=== PATIENT | female | born 1955 | race Hispanic/Latino ===

== ENCOUNTER 2018-08-29 10:00 | Emergency (ER) | payer MEDICARE ==
[2018-08-29] MEDS ORDERED: ONDANSETRON ODT 4 MG TAB ONE (10:43)
[2018-08-29] MEDS ORDERED: IBUPROFEN 600 MG TABLET ONE (10:43)
[2018-08-29] MEDS ORDERED: MORPHINE SULFATE 5 MG/ML VIAL ONE (10:44)
== END 2018-08-29 11:21 | disposition home or self-care (01) ==
LOC: EDH 10:00
CPT/HCPCS: 73030; 96372; J2270

== ENCOUNTER 2018-12-04 09:38 | Inpatient (IN) | payer OTHER, MEDICARE ==
[~2018-12-04] VITALS: Ht 162.6 cm; Wt 86.0 kg
[2018-12-04 10:36] LABS: BASOPHILS % (AUTO) 1.4 % (0.0-5.0); EOSINOPHILS % (AUTO) 2.7 % (0.0-8.0); HEMATOCRIT 36.4 % (36-48); LYMPHOCYTES % (AUTO) 20.4 % (21.0-51.0); MEAN CORPUSCULAR HGB CONC 33.3 g/dL (32.0-36.0); MEAN CORPUSCULAR VOLUME 87.1 fL (79-99); MONOCYTES % (AUTO) 6.1 % (3.0-13.0); NEUTROPHILS % (AUTO) 69.4 % (40.0-77.0); PLATELET COUNT (AUTO) 401 K/uL (130-400); RED BLOOD CELL COUNT(AUTO) 4.17 MIL/uL (4.00-5.50); RED CELL DISTRIBUTION WIDTH 14.2 % (11.0-15.5); WHITE BLOOD COUNT (AUTO) 10.8 K/uL (4.8-10.8)
[2018-12-04 10:41] LABS: CREATININE 0.7 mg/dL (0.5-1.5); POTASSIUM 4.4 mmol/L (3.5-5.1)
[2018-12-04 10:46] LABS: ALBUMIN 3.4 g/dL (3.5-5.0); BILIRUBIN,TOTAL 0.3 mg/dL (0.2-1.0); TOTAL PROTEIN, SERUM 8.3 g/dL (6.0-8.3)
[2018-12-04] MEDS ORDERED: ZOSYN 3.375GM+NS 50ML 50 ML IV ONE (11:02)
[2018-12-04] MEDS ORDERED: VANCOMYCIN 1GM+NS 250ML 250 ML IV ONE ×2 (11:02→14:00)
[2018-12-04] MEDS ORDERED: COMPOUND IV REFRIGERATED 1 EACH IVSOLN MISC PRN (13:30)
[2018-12-04] MEDS ORDERED: HYDRALAZINE HCL 20 MG/ML VIAL IV PRN (16:00)
[2018-12-04] MEDS ORDERED: MORPHINE SULFATE 4 MG/1ML SYG IV PRN (16:00)
[2018-12-04] MEDS ORDERED: ONDANSETRON HCL 4 MG/2 ML VIAL IV PRN (16:00)
[2018-12-04] MEDS ORDERED: ACETAMINOPHEN 325 MG TAB PO PRN (16:00)
[2018-12-04] MEDS: ZOSYN 3.375GM+NS 50ML 50 ML IV SCH (17:00)
--- NOTE | 2018-12-04 17:10 | NUR ---
Recieved pt from ER. Patient placed in bed by ER nurse. Pt alert, awake and oriented x3. No home medications brought. States daycare she attends has copy. Nurse to request copy tomorrow from daycare. Bed placed in lowest position, call light placed within reach, instructed on how to call nurse using call gusman. Instructed to call nurse if needing to get out of bed for BR. Patient has dressing in place to right foot which was placed by Dr. Khan today. Wound pics pending until dressing reopened by Dr. Khan. Venous Doppler used for left foot pedal pulses and audible. Unable to perform right foot venous doppler due to dressing in place. Patient in no distress.
[2018-12-04] MEDS: INSULIN HUMULIN R 100 UNIT/ML 3ML SQ SCH ×2 (17:45→22:15)
[2018-12-04] MEDS: SODIUM CHLORIDE 0.9% 1000ML 1,000 ML IV SCH (17:46)
[2018-12-04 18:01] VITALS: BP 145/64
[2018-12-04 20:20] VITALS: BP 145/64
[2018-12-04] MEDS: FAMOTIDINE/PF 20 MG/2 ML VIAL IV SCH (22:07)
[2018-12-04] MEDS: VANCOMYCIN 750MG + NS 250 ML IV SCH ×2 (22:07)
[2018-12-04 23:55] VITALS: BP 100/54
[2018-12-05] VITALS (8 sets, daily range): BP systolic 103–136; BP diastolic 44–66
[2018-12-05] MEDS: ZOSYN 3.375GM+NS 50ML 50 ML IV SCH ×3 (00:53→18:14)
[2018-12-05] MEDS: SODIUM CHLORIDE 0.9% 1000ML 1,000 ML IV SCH ×4 (01:51→23:26)
[2018-12-05] MEDS: ACETAMINOPHEN 325 MG TAB PO PRN (03:45)
[2018-12-05] MEDS ORDERED: VANCOMYCIN 1GM+NS 250ML 250 ML IV ONE (05:34)
[2018-12-05] MEDS: VANCOMYCIN 750MG + NS 250 ML IV SCH ×6 (05:40→20:18)
[2018-12-05] MEDS: INSULIN HUMULIN R 100 UNIT/ML 3ML SQ SCH ×3 (06:19→20:25)
[2018-12-05] MEDS ORDERED: ENOXAPARIN SODIUM 40 MG/0.4 ML SYRINGE SQ SCH (09:00)
[2018-12-05] MEDS: FAMOTIDINE/PF 20 MG/2 ML VIAL IV SCH ×2 (09:14→20:17)
--- NOTE | 2018-12-05 09:45 | NUR ---
Patient called [facility] and spoke with nurse on speaker phone while i was in the room. Patient tried to explain to Nurse Ferny from [facility] if medications can be faxed to hospital, Ferny quickly told patient that he was busy giving Insulin and that he would call her back.
--- NOTE | 2018-12-05 10:58 | NUR ---
Dr. Carbone called for consultation and given pt history, states he will be by some time today.
--- NOTE | 2018-12-05 13:10 | NUR ---
Dr. Carbone rounding with patient and explaining POC with patient. Nurse Ferny from [facility] called patient during md rounding and hastly told patient that it was time for him to go home and that he cannot hear what she needed and did not have time and hung up phone in a henry. Continue pending home medications and when asked if family may bring, patient states no one is able to bring home meds.
--- NOTE | 2018-12-05 13:50 | NUR ---
Consents signed for TALENT MANAGER, Atherectomy, Right Angiogram by Dr. de souza. Projection Welding Machine Operator Nurses present in patient room for pick up and delivery driver for procedure. Patient taken to supervisor cytogenetic laboratory in stable condition via wheelchair.
[2018-12-05 13:58] LABS: HEMATOCRIT 32.7 % (36-48); MEAN CORPUSCULAR HEMOGLOBIN 28.8 pg (27.0-33.0); MEAN CORPUSCULAR VOLUME 87.3 fL (79-99); PLATELET COUNT (AUTO) 419 K/uL (130-400); RED BLOOD CELL COUNT(AUTO) 3.74 MIL/uL (4.00-5.50); WHITE BLOOD COUNT (AUTO) 7.7 K/uL (4.8-10.8)
--- NOTE | 2018-12-05 14:05 | NUR ---
DCP CM met with pt discussed dc plans. Pt is semi-independent prior to admission, lives at home alone, daughter lives close by. Has a walker, rosa, provider M-F 5hrs Sat&Sun 3.5hrs, goes to [facility] Mon-Mon [id number]. Patient states she goes to [facility] for once a week for wound care. Feels safe to go back home, [facility] provider transportation for pt, daughter assist as well w/transportation and needs as necessary. Pt agreeable for placement if MD recommends, SILVIA signed for [facility], will wait for MD recommendations/order. DC plan to home vs snf once stable. CM to cont to follow up. Addendum: 12/05/18 at 1408 by MARIA LUISA BARROS LVN CM Amended: Links added.
[2018-12-05 14:10] LABS: INR 0.95 (0.85-1.15); PARTIAL THROMBOPLASTIN TIME 28.7 SEC (26.3-35.5)
[2018-12-05 14:16] LABS: CREATININE 0.9 mg/dL (0.5-1.5)
[2018-12-05] MEDS ORDERED: LIDOCAINE HCL 2% 20ML ONE (14:22)
[2018-12-05] MEDS ORDERED: IODIXANOL 320 MG/ML 100 ML VIAL ONE ×2 (14:22→15:10)
[2018-12-05] MEDS ORDERED: NITROGLYCERIN 5 MG/ML 10 ML VIAL IV ONE (14:22)
[2018-12-05] MEDS ORDERED: HEPARIN SODIUM 1000UNIT/ML 10ML VIAL ONE ×2 (14:22→16:43)
[2018-12-05] MEDS ORDERED: BIVALIRUDIN 250 MG/VIAL IV ONE (14:22)
[2018-12-05] MEDS ORDERED: MIDAZOLAM HCL 1 MG/ML 2ML VIAL ONE (14:38)
[2018-12-05] MEDS ORDERED: FENTANYL CITRATE PF 50 MCG/1 ML 2ML VIAL ONE ×2 (14:38→16:36)
[2018-12-05] MEDS ORDERED: DiphenhydrAMINE HCL 50 MG/ML VIAL ONE (14:45)
[2018-12-05] MEDS ORDERED: SODIUM CHLORIDE 0.9% 1000ML 1,000 ML IV SCH (17:30)
--- NOTE | 2018-12-05 17:35 | NUR ---
Recieved report from [facility]. VS stable. patient did not have any ballooning done by Dr. Carbone. Only pics taken of Right leg. Anterior Tibial patent, posterior tibial occluded. patient with Left Perclose femoral artery. orders read back.
--- NOTE | 2018-12-05 17:50 | NUR ---
Patient returned from laborer syrup machine. Daughter present in room. Ferny dressing to left groin, clean dry and intact. Assessed with laborer syrup machine [facility]. Patient vs stable. Pedal pulses palpaple. Reinforced instruction on laying flat for 4 hours. Pt c/o abdominal pain and grimacing. Pillow placed under back for pain management. Call light placed within reach, bed to lowest position.
[2018-12-05] MEDS: MORPHINE SULFATE 2 MG/ML 1ML SYG IV PRN (18:20)
[2018-12-06] VITALS (7 sets, daily range): BP systolic 113–137; BP diastolic 53–78
[2018-12-06] MEDS: ZOSYN 3.375GM+NS 50ML 50 ML IV SCH ×3 (01:09→16:57)
[2018-12-06 04:21] LABS: BASOPHILS % (AUTO) 0.7 % (0.0-5.0); HEMATOCRIT 32.5 % (36-48); LYMPHOCYTES % (AUTO) 24.8 % (21.0-51.0); MEAN CORPUSCULAR HEMOGLOBIN 29.1 pg (27.0-33.0); MEAN CORPUSCULAR HGB CONC 33.5 g/dL (32.0-36.0); MONOCYTES % (AUTO) 8.3 % (3.0-13.0); NEUTROPHILS % (AUTO) 63.2 % (40.0-77.0); PLATELET COUNT (AUTO) 393 K/uL (130-400); RED BLOOD CELL COUNT(AUTO) 3.73 MIL/uL (4.00-5.50); WHITE BLOOD COUNT (AUTO) 8.6 K/uL (4.8-10.8)
[2018-12-06 04:37] LABS: CREATININE 0.8 mg/dL (0.5-1.5); POTASSIUM 4.2 mmol/L (3.5-5.1)
[2018-12-06] MEDS: VANCOMYCIN 750MG + NS 250 ML IV SCH ×4 (05:59→13:53)
[2018-12-06] MEDS: INSULIN HUMULIN R 100 UNIT/ML 3ML SQ SCH ×4 (06:52→21:00)
[2018-12-06] MEDS: SODIUM CHLORIDE 0.9% 1000ML 1,000 ML IV SCH (09:26)
[2018-12-06] MEDS: FAMOTIDINE/PF 20 MG/2 ML VIAL IV SCH (10:08)
[2018-12-06] MEDS: MORPHINE SULFATE 2 MG/ML 1ML SYG IV PRN (13:54)
[2018-12-06] MEDS: LACTULOSE 20 GM/30 ML UDCUP PO PRN (16:58)
[2018-12-07] VITALS (17 sets, daily range): BP systolic 111–148; BP diastolic 42–70
[2018-12-07] MEDS: SODIUM CHLORIDE 0.9% 1000ML 1,000 ML IV SCH ×4 (00:08→15:26)
[2018-12-07] MEDS: FAMOTIDINE/PF 20 MG/2 ML VIAL IV SCH ×3 (00:08→21:15)
[2018-12-07] MEDS: VANCOMYCIN 750MG + NS 250 ML IV SCH ×8 (00:10→21:15)
[2018-12-07] MEDS: ZOSYN 3.375GM+NS 50ML 50 ML IV SCH ×3 (00:59→17:47)
[2018-12-07 04:55] LABS: BASOPHILS % (AUTO) 1.1 % (0.0-5.0); EOSINOPHILS % (AUTO) 3.7 % (0.0-8.0); HEMATOCRIT 33.8 % (36-48); LYMPHOCYTES % (AUTO) 29.5 % (21.0-51.0); MEAN CORPUSCULAR HEMOGLOBIN 29.3 pg (27.0-33.0); MEAN CORPUSCULAR HGB CONC 33.8 g/dL (32.0-36.0); MEAN CORPUSCULAR VOLUME 86.6 fL (79-99); NEUTROPHILS % (AUTO) 58.7 % (40.0-77.0); PLATELET COUNT (AUTO) 425 K/uL (130-400); RED CELL DISTRIBUTION WIDTH 13.8 % (11.0-15.5)
[2018-12-07 05:11] LABS: CREATININE 0.8 mg/dL (0.5-1.5); POTASSIUM 3.9 mmol/L (3.5-5.1)
[2018-12-07] MEDS: INSULIN HUMULIN R 100 UNIT/ML 3ML SQ SCH ×4 (05:54→20:59)
[2018-12-07] MEDS ORDERED: BUPIVACAINE/PF 0.5% 30ML VIAL ONE (06:27)
[2018-12-07] MEDS ORDERED: LIDOCAINE HCL 1% 20 ML VIAL ONE (06:27)
[2018-12-07] MEDS ORDERED: ONDANSETRON HCL 4 MG/2 ML VIAL ONE (06:32)
[2018-12-07] MEDS ORDERED: MIDAZOLAM HCL 1 MG/ML 2ML VIAL ONE (06:32)
[2018-12-07] MEDS ORDERED: LIDOCAINE PF 2% 5ML ABBOJECT ONE (06:34)
[2018-12-07] MEDS ORDERED: PROPOFOL 10 MG/ML 20ML VIAL IV ONE ×2 (06:35→07:28)
--- NOTE | 2018-12-07 08:30 | NUR ---
POSTOP , RT FOOT . SURGERY, PT BACK WITH A LAKESHIA DRSG DRYAND CLEAN AND ELEVATED UP ON PILLOW . DENIES ANY PAIN, POSTOP V/S MONITOR STARTED , ORDER DIET. CALL LIGHT IN REACH. .
--- NOTE | 2018-12-07 14:04 | NUR ---
CM Note: [facility] pending ins auth and acceptance Spoke to Maria Luisa romero/[facility], received clinicals, order, and pasrr. Will come eval pt. Aware pt pending PT eval and treat, will fax notes as soon as available. Pt pending ins auth and acceptance. Primary nurse aware. CM to cont to follow up.
--- NOTE | 2018-12-07 18:00 | NUR ---
PIV TO HER RT FOREARM DC, DUE TO SOME TENDERNESS , A SM DRSG APPLICATION ON . STARTED A 22 G. TO HER LT WRIST , SITE ,WITH GOOD BLOOD RETURN NOTED .SITE CARE DONE. CALL LIGHT IN [place] [facility] . RT FOOT DRSG DRY A ND CLEAN A ND ELEVATED UP ON PILLOWS
[2018-12-07] MEDS: MORPHINE SULFATE 2 MG/ML 1ML SYG IV PRN (18:03)
[2018-12-08] MEDS: ZOSYN 3.375GM+NS 50ML 50 ML IV SCH ×3 (01:16→16:28)
[2018-12-08] MEDS: SODIUM CHLORIDE 0.9% 1000ML 1,000 ML IV SCH ×3 (01:16→21:35)
[2018-12-08 03:15] VITALS: BP 121/45
[2018-12-08 04:25] LABS: BASOPHILS % (AUTO) 0.8 % (0.0-5.0); EOSINOPHILS % (AUTO) 2.2 % (0.0-8.0); HEMATOCRIT 30.8 % (36-48); LYMPHOCYTES % (AUTO) 19.2 % (21.0-51.0); MEAN CORPUSCULAR HEMOGLOBIN 29.1 pg (27.0-33.0); MEAN CORPUSCULAR HGB CONC 33.6 g/dL (32.0-36.0); MEAN CORPUSCULAR VOLUME 86.6 fL (79-99); NEUTROPHILS % (AUTO) 70.8 % (40.0-77.0); PLATELET COUNT (AUTO) 377 K/uL (130-400); RED BLOOD CELL COUNT(AUTO) 3.56 MIL/uL (4.00-5.50); RED CELL DISTRIBUTION WIDTH 13.9 % (11.0-15.5); WHITE BLOOD COUNT (AUTO) 10.5 K/uL (4.8-10.8)
[2018-12-08 04:33] LABS: CREATININE 0.9 mg/dL (0.5-1.5); POTASSIUM 3.4 mmol/L (3.5-5.1)
[2018-12-08] MEDS: VANCOMYCIN 750MG + NS 250 ML IV SCH ×6 (04:39→20:33)
[2018-12-08] MEDS: POTASSIUM CHLORIDE 20 MEQ ERTAB PO PRN (05:21)
[2018-12-08] MEDS ORDERED: POTASSIUM CHLORIDE 10% ELIXIR 20 MEQ/15 ML UDCUP PO PRN (05:30)
[2018-12-08] MEDS ORDERED: LIDOCAINE HCL-MPF 1% 2ML VIAL IVP PRN (05:30)
[2018-12-08] MEDS ORDERED: POTASSIUM CHLORIDE 20MEQ/100ML 100 ML IV PRN (05:30)
[2018-12-08] MEDS: INSULIN HUMULIN R 100 UNIT/ML 3ML SQ SCH ×4 (06:10→20:13)
[2018-12-08] MEDS: ACETAMINOPHEN 325 MG TAB PO PRN (06:41)
[2018-12-08 08:00] VITALS: BP 116/58
[2018-12-08] MEDS: FAMOTIDINE/PF 20 MG/2 ML VIAL IV SCH ×2 (09:06→20:32)
[2018-12-08] MEDS: LACTULOSE 20 GM/30 ML UDCUP PO PRN (09:14)
--- NOTE | 2018-12-08 11:10 | NUR ---
PT D/C WITH TEACH BACK EDUCATION SATISFACTORILY IV REMOVED, CATHETER INTACT PUNCTURE SITE, CLEAN AND DRY , SOFT NO SIGNS OF HEMATOMA, INFECTION NOTED Addendum: 12/08/18 at 1215 by NAOMI MI RN DISREGARD, WRONG PT
[2018-12-08 12:00] VITALS: BP 120/68
[2018-12-08 12:33] LABS: INR 0.98 (0.85-1.15); PARTIAL THROMBOPLASTIN TIME 27.1 SEC (26.3-35.5); PROTHROMBIN TIME 10.3 SEC (9.6-11.6)
[2018-12-08 16:00] VITALS: BP 156/75
[2018-12-08 19:00] VITALS: BP 142/70
[2018-12-08 23:00] VITALS: BP 102/50
[2018-12-09] MEDS: ZOSYN 3.375GM+NS 50ML 50 ML IV SCH ×3 (01:01→17:05)
[2018-12-09 03:00] VITALS: BP 138/67
[2018-12-09 04:22] LABS: BASOPHILS % (AUTO) 0.7 % (0.0-5.0); EOSINOPHILS % (AUTO) 1.8 % (0.0-8.0); HEMATOCRIT 28.6 % (36-48); LYMPHOCYTES % (AUTO) 17.5 % (21.0-51.0); MEAN CORPUSCULAR HGB CONC 33.5 g/dL (32.0-36.0); MEAN CORPUSCULAR VOLUME 86.3 fL (79-99); MONOCYTES % (AUTO) 8.4 % (3.0-13.0); NEUTROPHILS % (AUTO) 71.6 % (40.0-77.0); PLATELET COUNT (AUTO) 373 K/uL (130-400); RED BLOOD CELL COUNT(AUTO) 3.32 MIL/uL (4.00-5.50); RED CELL DISTRIBUTION WIDTH 13.5 % (11.0-15.5); WHITE BLOOD COUNT (AUTO) 10.5 K/uL (4.8-10.8)
[2018-12-09] MEDS: VANCOMYCIN 750MG + NS 250 ML IV SCH ×6 (04:30→19:56)
[2018-12-09 04:50] LABS: CREATININE 0.7 mg/dL (0.5-1.5); POTASSIUM 3.3 mmol/L (3.5-5.1)
[2018-12-09] MEDS: POTASSIUM CHLORIDE 20 MEQ ERTAB PO PRN ×2 (04:54→06:47)
[2018-12-09] MEDS: INSULIN HUMULIN R 100 UNIT/ML 3ML SQ SCH ×4 (06:26→20:59)
[2018-12-09] MEDS: SODIUM CHLORIDE 0.9% 1000ML 1,000 ML IV SCH ×2 (06:30→17:26)
[2018-12-09 08:36] VITALS: BP 127/57
[2018-12-09] MEDS: FAMOTIDINE/PF 20 MG/2 ML VIAL IV SCH ×2 (09:08→19:56)
[2018-12-09 12:22] VITALS: BP 122/57
[2018-12-09 16:41] VITALS: BP 141/68
[2018-12-09 19:55] VITALS: BP 142/78
[2018-12-09] MEDS: LACTULOSE 20 GM/30 ML UDCUP PO PRN (19:56)
[2018-12-09] MEDS ORDERED: IBUP-2070 PO (22:26)
[2018-12-09] MEDS ORDERED: PREG150C PO (22:26)
[2018-12-09] MEDS ORDERED: RANI150T7 PO (22:26)
[2018-12-09] MEDS ORDERED: METF-446 PO (22:26)
[2018-12-09 23:21] VITALS: BP 127/62
[2018-12-10] MEDS: ZOSYN 3.375GM+NS 50ML 50 ML IV SCH ×3 (00:30→18:23)
[2018-12-10] MEDS: POTASSIUM CHLORIDE 20 MEQ ERTAB PO PRN (00:31)
[2018-12-10] MEDS: SODIUM CHLORIDE 0.9% 1000ML 1,000 ML IV SCH (02:40)
[2018-12-10 04:21] VITALS: BP 120/56
[2018-12-10] MEDS: VANCOMYCIN 750MG + NS 250 ML IV SCH ×2 (04:26)
[2018-12-10] MEDS: INSULIN HUMULIN R 100 UNIT/ML 3ML SQ SCH ×4 (06:17→21:23)
--- NOTE | 2018-12-10 06:26 | NUR ---
SALIVA/SPUTUM NOTED BLOOD STREAKED SALIVA, SMALL AMOUNT ,BRIGHT RED FRESH STREAK,POST HEAVING,AND EVENTUAL COUGHING EPISODE, AND REASSURED PT ,WILL REPORT TO MD, CONSIDERING THE SCANT FRESH BRIGHT RED COLOR COULD POSSIBLY BE IRRITATION FROM THROAT/DRYNESS. WILL CONTINUE TO OBSERVE. NO DISTRESS Addendum: 12/10/18 at 0629 by TAYLOR WRIGHT RN RN Amended: Links added.
--- NOTE | 2018-12-10 07:30 | NUR ---
NOTE AAOX3. DENIES PAIN OR DISCOMFORT. DR FUENTES IN THE ROOM AT THIS TIME. PATIENT IS PENDING ACCEPTANCE TO [facility] FOR LONG TERM ANTIBIOTICS. LEFT STUMP DRESSING REMOVED PER DR FUENTES AND PICTURES TAKEN FOR PATIENT MAY LEAVE TODAY. ELIZABETH DRAINS REMOVED X2 WELL. SUTURE LINE INTACT. INCISION CLEAN DRY NO DEHISCENCE NOTED. SMALL OPENING DISTAL STUMP SMALL AMOUNT OF BLEEDING DRAINAGE NOTED. DRESSING APPLIED TO SITE. BBS CLEAR. NO DISTRESS OR SOB. ONLY COMPLAIN IS SLIGHT COUGH WITH BLOOD TINGED SPUTUM BUT COMPLAINS HER NOSE IS TOO DRY. NO FEVER. VS STABLE. ISOLATION FOR CONTACT DUE TO WOUND.
[2018-12-10 07:51] VITALS: BP 140/63
[2018-12-10] MEDS: FAMOTIDINE/PF 20 MG/2 ML VIAL IV SCH ×2 (10:34→21:18)
[2018-12-10 11:36] VITALS: BP 125/59
[2018-12-10] MEDS ORDERED: MAGNESIUM HYDROXIDE 30 ML/UDCUP PO PRN (15:00)
[2018-12-10] MEDS ORDERED: VANCOMYCIN PROTOCOL PER PHARMACY IV SCH (15:30)
[2018-12-10] MEDS ORDERED: MAGNESIUM HYDROXIDE 30 ML/UDCUP ONE (15:42)
[2018-12-10 16:38] VITALS: BP 150/65
[2018-12-10] MEDS: VANCOMYCIN 500MG+NS 100 ML IV SCH (16:53)
--- NOTE | 2018-12-10 16:57 | NUR ---
Nutrition intervention: Nutrition notification for LOS x6. Pt reports troubled with her stomach with some foods and is requesting double portion of vegetables. Pt also requesting mechanical soft food d/t missing teeth. PANKAJ to make updated changes for pt's diet. [facility] 12/06-please monitor for constipation. Alb 3.4. Addendum: 12/10/18 at [address] Amended: Links added.
--- NOTE | 2018-12-10 17:04 | NUR ---
NOTE HAS REMAINED STABLE THROUGHOUT THE DAY. PATIENT HAS NOT BEEN ACCEPTED TO SNF YET AND DISCHARGE MED REC READY. SHE ALSO C/O CONSTIPATION NO SYMPTOMS BUT SHE DID NOT RESPOND TO LACTULOSE SO I GOT ORDERS FROM [facility] FOR M.O.M. WAS MEDICATED ONCE WITH M.O.M. PENDING RESULTS. STATES IT SHOULD WORK SOON.
[2018-12-10 20:00] VITALS: BP 127/58
[2018-12-11] VITALS: BP 122/58
[2018-12-11] MEDS: VANCOMYCIN 500MG+NS 100 ML IV SCH ×3 (00:52→16:57)
[2018-12-11] MEDS: ZOSYN 3.375GM+NS 50ML 50 ML IV SCH ×3 (01:49→16:58)
[2018-12-11 04:00] VITALS: BP 120/59
[2018-12-11] MEDS: INSULIN HUMULIN R 100 UNIT/ML 3ML SQ SCH ×3 (06:56→17:00)
[2018-12-11 07:52] VITALS: BP 128/54
[2018-12-11] MEDS: FAMOTIDINE/PF 20 MG/2 ML VIAL IV SCH (10:32)
[2018-12-11 11:20] VITALS: BP 123/65
[2018-12-11 17:04] VITALS: BP 118/62
== END 2018-12-11 18:46 | DRG 504 ==
LOC: EDH 09:38 → EDHIP 09:39 → 4BH 16:47
PROVIDERS: ADMIT Internal Medicine; ATTEND Internal Medicine
PROC: 047R3ZZ Dilation of Right Posterior Tibial Artery, Percutaneous Approach (ICD-10-PCS; 2018-12-06)
PROC: B41D1ZZ Fluoroscopy of Aorta and Bilateral Lower Extremity Arteries using Low Osmolar Contrast (ICD-10-PCS; 2018-12-06)
PROC: 0QBN0ZZ Excision of Right Metatarsal, Open Approach (ICD-10-PCS; principal; 2018-12-07 06:30)
PROC: 02HV33Z Insertion of Infusion Device into Superior Vena Cava, Percutaneous Approach (ICD-10-PCS; 2018-12-08)
PROC: B5181ZA Fluoroscopy of Superior Vena Cava using Low Osmolar Contrast, Guidance (ICD-10-PCS; 2018-12-08)
DX: T87.40 Infection of amputation stump, unspecified extremity (principal); M86.10 Other acute osteomyelitis, unspecified site; L03.115 Cellulitis of right lower limb; L97.419 Non-pressure chronic ulcer of right heel and midfoot with unspecified severity; M86.8X7 Other osteomyelitis, ankle and foot; E11.621 Type 2 diabetes mellitus with foot ulcer; E11.51 Type 2 diabetes mellitus with diabetic peripheral angiopathy without gangrene; E11.69 Type 2 diabetes mellitus with other specified complication; M19.90 Unspecified osteoarthritis, unspecified site; E78.00 Pure hypercholesterolemia, unspecified; L97.529 Non-pressure chronic ulcer of other part of left foot with unspecified severity; E11.622 Type 2 diabetes mellitus with other skin ulcer; Y83.5 Amputation of limb(s) as the cause of abnormal reaction of the patient, or of later complication, without mention of misadventure at the time of the procedure; E66.9 Obesity, unspecified; E78.5 Hyperlipidemia, unspecified; I10 Essential (primary) hypertension; Z68.32 Body mass index [BMI] 32.0-32.9, adult; Z83.3 Family history of diabetes mellitus
CPT/HCPCS: 36247; 36415; 37228; 71045; 73630; 73718; 75710; 80048; 80053; 80202; 82948; 84132; 85025; 85027; 85610; 85730; 87070; 87076; 87077; 87186; 87205; 93005; 93925; 97039; 99156; 99157; C1760; C1769; C1773; C1894; G0378; J0583; J1200; J1644; J1650; J1815; J2001; J2250; J2405; J2543; J2704; J3010; J3370; J3490; J7030; Q9967

== ENCOUNTER → 2020-05-27 | Outpatient (CLI) | payer MEDICARE ==
[~2020-05-27] MED LIST: IBUP-2070 PO; METF-446 PO; PREG150C PO; RANI150T7 PO
== END | disposition home or self-care (01) ==
LOC: WHH 08:00
PROVIDERS: ATTEND Podiatrist Foot & Ankle Surgery
DX: E11.621 Type 2 diabetes mellitus with foot ulcer (principal); L97.521 Non-pressure chronic ulcer of other part of left foot limited to breakdown of skin; E11.42 Type 2 diabetes mellitus with diabetic polyneuropathy; E11.51 Type 2 diabetes mellitus with diabetic peripheral angiopathy without gangrene; E11.69 Type 2 diabetes mellitus with other specified complication; M86.8X7 Other osteomyelitis, ankle and foot; E66.9 Obesity, unspecified; I10 Essential (primary) hypertension; E78.00 Pure hypercholesterolemia, unspecified; E78.5 Hyperlipidemia, unspecified; M19.90 Unspecified osteoarthritis, unspecified site; R32 Unspecified urinary incontinence; F32.9 Major depressive disorder, single episode, unspecified; Z96.652 Presence of left artificial knee joint; Z79.84 Long term (current) use of oral hypoglycemic drugs; Z68.31 Body mass index [BMI] 31.0-31.9, adult
CPT/HCPCS: 97597; A4450; A4649

== ENCOUNTER 2020-06-03 08:00 | Outpatient (CLI) | payer MEDICARE | END 2020-06-03 13:09 | disposition home or self-care (01) | LOC: WHH 08:00 | PROVIDERS: ATTEND Podiatrist Foot & Ankle Surgery | DX: E11.621 Type 2 diabetes mellitus with foot ulcer (principal); I70.245 Atherosclerosis of native arteries of left leg with ulceration of other part of foot; L97.528 Non-pressure chronic ulcer of other part of left foot with other specified severity; E11.42 Type 2 diabetes mellitus with diabetic polyneuropathy; E11.51 Type 2 diabetes mellitus with diabetic peripheral angiopathy without gangrene; E11.69 Type 2 diabetes mellitus with other specified complication; M86.8X7 Other osteomyelitis, ankle and foot; E66.9 Obesity, unspecified; I10 Essential (primary) hypertension; E78.00 Pure hypercholesterolemia, unspecified; E78.5 Hyperlipidemia, unspecified; M19.90 Unspecified osteoarthritis, unspecified site; R32 Unspecified urinary incontinence; F32.9 Major depressive disorder, single episode, unspecified; Z96.652 Presence of left artificial knee joint; Z79.84 Long term (current) use of oral hypoglycemic drugs; Z68.31 Body mass index [BMI] 31.0-31.9, adult | CPT/HCPCS: G0463 ==

== ENCOUNTER 2024-10-08 19:50 | Emergency (ER) | payer MEDICARE ==
[~2024-10-08] VITALS: Ht 162.6 cm; Wt 78.0 kg
--- NOTE | 2024-10-08 20:23 | ERN ---
General Chief Complaint: Foreignbody Ear Stated Complaint: C/O RONDON IN RIGHT EAR Time Seen by MD: 20:05 History of Present Illness Initial Comments 69-year-old female presents for possible cockroach in the right ear. Patient reports she felt something called her ear. She feels a foreign body sensation of the right ear. No other complaints. Allergies: Coded Allergies: No Known Allergies (Verified Allergy, Unknown, 12/04/18) morphine (Verified Adverse Reaction, Mild, ITCHING, 12/08/18) ITCHING Home Meds Reported Medications Pregabalin (Lyrica) 150 Mg Capsule, 150 MG PO BID, CAP 12/09/18 Ibuprofen (Ibuprofen) 600 Mg Tablet, 600 MG PO Q6H PRN for PAIN, TAB 12/09/18 Ranitidine HCl (Ranitidine HCl) 150 Mg Tablet, 150 MG PO DAILY, TAB 12/09/18 Metformin HCl (Metformin HCl) 1,000 Mg Tablet, 1000 MG PO BID, TAB 12/09/18 Past Medical History Past Medical History: Arthritis, Diabetes-Type II, High Cholesterol, Hypertension Past Surgical History: Other Surgical History Other: AMPUTATED TOES TO RIGHT FOOT ROS Dictation CONSTITUTIONAL: No chills, no fever, no weakness, no diaphoresis, no malaise. HEAD/FACE: No signs of trauma. EENT: Foreign body sensation to the right ear RESPIRATORY: No cough, no orthopnea, no SOB, no stridor, no wheezing. CARDIOVASCULAR: No chest pain, no edema, no palpitations, no syncope. GASTROINTESTINAL/ABDOMINAL: No abdominal pain, no constipation, no diarrhea, no nausea, no vomiting. GENITOURINARY: No abnormal discharge, no dysuria, no frequent urination, no hematuria. No complaints of pain in the genitals. MUSCULOSKELETAL: No back pain, no gout, no joint pain, no joint swelling, no muscle pain, no muscle stiffness, no neck pain. INTEGUMENTARY: No change in color, no change in hair/nails, no dryness, no lesion, no lumps, no rash. NEUROLOGICAL/PSYCH: No anxiety, not depressed, no emotional problem, no headache, no numbness, no pre-existing deficit, no history of seizures, no tremors, no weakness. HEMATOLOGIC/LYMPHATIC: Not anemic, no history of blood clots, no apparent bleeding, no bruising, glands not swollen. All Systems Negative, Except as Noted. Physical Exam Physical Exam Dictation VITAL SIGNS: Reviewed. GENERAL APPEARANCE: Alert, oriented x3, no acute distress, obese. HEAD AND FACE: Non-traumatic. EYES: PERRL, pink conjunctivas, eyelid no trauma, anterior chamber clear. EARS: Pinnas intact and no signs of trauma or erythema. Right ear has no obvious foreign body other than some ear wax. NOSE: No discharge, no bleeding. OROPHARYNX: Mouth normal, teeth no caries, tongue pink. Pharynx clear, no erythema. Tonsils no exudates, no abscesses noted. Mucous membrane moist. NECK: Supple, non-tender, no thyromegaly, no masses, no JVD, no bruits. BREAST: Deferred. CHEST: No tenderness, no crepitus, no paradoxical movement, no retractions. LUNGS: Clear, well-ventilated, symmetric, no rales, no wheezing, no rhonchi, no stridor, good breath sounds bilaterally. HEART: Regular rate, regular rhythm, no murmur, no gallops. VASCULAR: No peripheral edema. ABDOMEN: Soft, positive bowel sounds, nondistended, no guarding, nontender, no rebound, no masses no hepatomegaly, no splenomegaly, no Lowe's sign, no hernias. RECTAL: Deferred. GENITAL: Deferred. NEUROLOGICAL: Normal speech, gross motor function intact, gross sensory function intact. MUSCULOSKELETAL: Neck nontender, full range of motion, back nontender, full range of motion. EXTREMITIES: Nontender, full range of motion. SKIN: Color pink, dry, no turgor, no rash, no lacerations, no abrasions, no contusions. LYMPHATICS: Deferred. MDM CC: Concern for foreign body in the right ear Historian: Patient Comorbidities: None I examined the right ear. There is some cerumen but there is no foreign body otherwise. There is no cockroaches with the patient that was there. I can see the TM. Offered to clean the cerumen, but patient prefers to go home. ED Course Vital Signs Date Time Temp Pulse Resp B/P (MAP) Pulse Ox O2 Delivery O2 Flow Rate FiO2 10/08/24 20:54 97.5 78 18 144/71 98 Room Air* 0 21 10/08/24 19:52 97.7 71 20 149/62 98 Room Air DX & DISP Disposition: Discharge Departure Impression: Primary Impression: Excessive cerumen in right ear canal Condition: Stable Additional Instructions: There are no obvious foreign bodies in your ear other than cerumen, or ear wax. I recommend that you clean your right ear with hydrogen peroxide at home. Please return to the emergency department as needed. Referrals: KATIA PRESTON MD (PCP) GERALDO SAUNDERS DO Oct 08, 2024 20:23
[2024-10-08 20:54] VITALS: BP 144/71; PULSE 78; RESP 18; TEMP 97.5; O2SAT 98
== END 2024-10-08 20:56 | disposition home or self-care (01) ==
LOC: EDH 19:50
DX: H61.21 Impacted cerumen, right ear (principal); E11.9 Type 2 diabetes mellitus without complications; E78.00 Pure hypercholesterolemia, unspecified; I10 Essential (primary) hypertension; M19.90 Unspecified osteoarthritis, unspecified site; Z79.84 Long term (current) use of oral hypoglycemic drugs; Z79.899 Other long term (current) drug therapy; Z88.5 Allergy status to narcotic agent
CPT/HCPCS: 99281

== ENCOUNTER → 2025-08-25 | Outpatient (CLI) | payer OTHER, MEDICARE ==
[~2025-08-25] MED LIST changes: +IBUP-1492 PO; -IBUP-2070 PO
== END | disposition home or self-care (01) ==
LOC: WHH 08:03
PROVIDERS: ATTEND Family Medicine
DX: E11.621 Type 2 diabetes mellitus with foot ulcer (principal); L97.512 Non-pressure chronic ulcer of other part of right foot with fat layer exposed; E11.40 Type 2 diabetes mellitus with diabetic neuropathy, unspecified; E11.51 Type 2 diabetes mellitus with diabetic peripheral angiopathy without gangrene; I10 Essential (primary) hypertension; E66.9 Obesity, unspecified; E78.00 Pure hypercholesterolemia, unspecified; M19.90 Unspecified osteoarthritis, unspecified site; F32.A Depression, unspecified; Z89.431 Acquired absence of right foot; Z96.652 Presence of left artificial knee joint; Z79.84 Long term (current) use of oral hypoglycemic drugs; Z79.899 Other long term (current) drug therapy; Z68.31 Body mass index [BMI] 31.0-31.9, adult
CPT/HCPCS: 87086 ×3; 87186 ×3; 87070; G0463; A4450

== ENCOUNTER → 2025-09-02 | Outpatient (CLI) | payer OTHER, MEDICARE | END | disposition home or self-care (01) | LOC: WHH 09:22 | PROVIDERS: ATTEND Family Medicine | DX: E11.621 Type 2 diabetes mellitus with foot ulcer (principal); I70.235 Atherosclerosis of native arteries of right leg with ulceration of other part of foot; L97.512 Non-pressure chronic ulcer of other part of right foot with fat layer exposed; E11.40 Type 2 diabetes mellitus with diabetic neuropathy, unspecified; E66.9 Obesity, unspecified; I10 Essential (primary) hypertension; E78.00 Pure hypercholesterolemia, unspecified; M19.90 Unspecified osteoarthritis, unspecified site; F32.A Depression, unspecified; Z89.431 Acquired absence of right foot; Z96.652 Presence of left artificial knee joint; Z79.899 Other long term (current) drug therapy | CPT/HCPCS: 93922 ==

== ENCOUNTER → 2025-09-03 | Outpatient (CLI) | payer OTHER, MEDICARE ==
--- NOTE | 2025-09-03 12:51 | HMCIMG ---
STUDY: ULTRASOUND ARTERIAL DUPLEX OF THE RIGHT LOWER EXTREMITY CLINICAL INFORMATION: Type 2 diabetes; evaluation of right lower extremity arterial circulation. TECHNIQUE: Real-time grayscale, color Doppler, and spectral Doppler ultrasound of the right lower extremity arteries was performed from the common femoral artery through the distal runoff vessels, with peak systolic velocities and waveform morphology recorded. COMPARISON: None provided. FINDINGS: RIGHT COMMON FEMORAL ARTERY (PRODUCTION OPERATIONS ENGINEER): Peak systolic velocity measures approximately 139 cm/s with a biphasic waveform, compatible with mild atherosclerotic change without hemodynamically significant inflow stenosis. RIGHT SUPERFICIAL FEMORAL ARTERY (SFA): Proximal SFA peak systolic velocity is approximately 87 cm/s with a biphasic waveform. Mid SFA demonstrates a peak systolic velocity of approximately 170 cm/s with a biphasic waveform, suggesting at least mild to moderate focal stenosis in this segment. Distal SFA peak systolic velocity is approximately 148 cm/s with a biphasic waveform. RIGHT POPLITEAL ARTERY: Proximal popliteal artery peak systolic velocity is approximately 108 cm/s with a biphasic waveform. Distal popliteal artery peak systolic velocity is approximately 140 cm/s with a monophasic waveform, indicating distal runoff disease and possible more distal multilevel atherosclerotic involvement. RIGHT TIBIAL AND DISTAL ARTERIES: Right posterior tibial artery demonstrates a peak systolic velocity of approximately 45 cm/s with a monophasic waveform, consistent with distal arterial disease. Distal anterior tibial artery peak systolic velocity is approximately 115 cm/s with a monophasic waveform and reported stenosis, compatible with at least moderate focal stenosis in this segment. Dorsalis pedis artery demonstrates a peak systolic velocity of approximately 43 cm/s with a monophasic waveform, indicating reduced distal perfusion and multilevel distal atherosclerotic disease. OTHER: Overall impression of multilevel atherosclerotic disease in the right lower extremity, with transition from biphasic waveforms proximally to monophasic waveforms distally, consistent with peripheral arterial occlusive disease. IMPRESSION: * Duplex ultrasound findings consistent with multilevel peripheral arterial occlusive disease of the right lower extremity, with preserved inflow (biphasic waveforms in the common femoral and proximal superficial femoral arteries) and evidence of at least moderate stenosis in the mid superficial femoral and distal anterior tibial artery, as well as distal runoff disease (monophasic waveforms in the distal popliteal, tibial, and dorsalis pedis arteries). * In the setting of type 2 diabetes, these findings are compatible with clinically significant peripheral arterial disease; recommend correlation with symptoms (claudication, rest pain, nonhealing ulcers) and consideration of noninvasive physiologic testing (ankle-brachial index and/or toe-brachial index) and vascular surgery or vascular medicine consultation for risk stratification and management. /Mathews
== END | disposition home or self-care (01) ==
LOC: RAH 08:23
PROVIDERS: ATTEND Family Medicine
DX: I70.201 Unspecified atherosclerosis of native arteries of extremities, right leg (principal); E11.621 Type 2 diabetes mellitus with foot ulcer; E11.51 Type 2 diabetes mellitus with diabetic peripheral angiopathy without gangrene
CPT/HCPCS: 93926

== ENCOUNTER → 2025-09-23 | Outpatient (CLI) | payer OTHER, MEDICARE | END | disposition home or self-care (01) | LOC: WHH 08:14 | PROVIDERS: ATTEND Family Medicine | DX: E11.621 Type 2 diabetes mellitus with foot ulcer (principal); I70.235 Atherosclerosis of native arteries of right leg with ulceration of other part of foot; L97.512 Non-pressure chronic ulcer of other part of right foot with fat layer exposed; E11.40 Type 2 diabetes mellitus with diabetic neuropathy, unspecified; E66.9 Obesity, unspecified; I10 Essential (primary) hypertension; E78.00 Pure hypercholesterolemia, unspecified; M19.90 Unspecified osteoarthritis, unspecified site; F32.A Depression, unspecified; Z89.431 Acquired absence of right foot; Z96.652 Presence of left artificial knee joint; Z79.899 Other long term (current) drug therapy; Z68.31 Body mass index [BMI] 31.0-31.9, adult | CPT/HCPCS: G0463; A6212; A6209 ==

== ENCOUNTER → 2025-09-30 | Outpatient (CLI) | payer OTHER, MEDICARE | END | disposition home or self-care (01) | LOC: WHH 08:06 | PROVIDERS: ATTEND Family Medicine | DX: E11.621 Type 2 diabetes mellitus with foot ulcer (principal); I70.235 Atherosclerosis of native arteries of right leg with ulceration of other part of foot; L97.512 Non-pressure chronic ulcer of other part of right foot with fat layer exposed; E11.40 Type 2 diabetes mellitus with diabetic neuropathy, unspecified; E66.9 Obesity, unspecified; I10 Essential (primary) hypertension; E78.00 Pure hypercholesterolemia, unspecified; M19.90 Unspecified osteoarthritis, unspecified site; F32.A Depression, unspecified; Z89.431 Acquired absence of right foot; Z96.652 Presence of left artificial knee joint; Z79.899 Other long term (current) drug therapy; Z68.31 Body mass index [BMI] 31.0-31.9, adult | CPT/HCPCS: G0463; A6212; A6209 ==

== ENCOUNTER → 2025-10-07 | Outpatient (CLI) | payer OTHER, MEDICARE | END | disposition home or self-care (01) | LOC: WHH 08:15 | PROVIDERS: ATTEND Family Medicine | DX: E11.621 Type 2 diabetes mellitus with foot ulcer (principal); I70.235 Atherosclerosis of native arteries of right leg with ulceration of other part of foot; L97.512 Non-pressure chronic ulcer of other part of right foot with fat layer exposed; E11.40 Type 2 diabetes mellitus with diabetic neuropathy, unspecified; E66.9 Obesity, unspecified; I10 Essential (primary) hypertension; E78.00 Pure hypercholesterolemia, unspecified; M19.90 Unspecified osteoarthritis, unspecified site; F32.A Depression, unspecified; Z89.431 Acquired absence of right foot; Z96.652 Presence of left artificial knee joint; Z79.899 Other long term (current) drug therapy; Z68.31 Body mass index [BMI] 31.0-31.9, adult | CPT/HCPCS: G0463; A6212; A6209 ==